=== PATIENT | male | born 1960 | race Caucasian/White ===

== ENCOUNTER 2017-08-24 20:20 | Observation (INO) ==
[2017-08-24 21:04] LABS: Basophils # 0.1 K/mcL (0.0-0.2); Basophils % 0.3 %; Eosinophils % 0.1 %; Hematocrit 42.6 % (37.5-50.1); Hemoglobin 15.3 g/dL (12.9-16.9); Immature Granulocytes % 0.5 % (0-4); Lymphocytes # 1.4 K/mcL (0.6-4.6); Lymphocytes % 9.4 %; Mean Corpuscular HGB Conc 35.9 g/dL (31.6-35.5); Mean Corpuscular Hemoglobin 31.6 pg (28.0-33.3); Mean Platelet Volume 9.1 fL (9.4-12.4); Monocytes # 1.4 K/mcL (0.0-1.3); Monocytes % 9.6 %; Neutrophils # 11.9 K/mcL (1.6-8.9); Platelet Count 198 K/mcL (140-400); Red Blood Count 4.84 M/mcL (4.19-5.50); Red Cell Distribution Width 12.8 % (11.5-14.5); Segmented Neutrophils % 80.1 %
[2017-08-24 21:05] LABS: Bilirubin,Urine Negative (Negative); Blood,Urine Trace-lysed (Negative); Clarity,Urine Clear (Clear); Color,Urine Yellow (Yellow); Glucose,Urine (UA) Normal (Normal); Ketones,Urine Negative (Negative); Leukocyte Esterase,Urine Negative (Negative); Nitrite,Urine Negative (Negative); Protein,Urine 30 mg/dL (Neg-Trace); Specific Gravity,Urine 1.015 (1.010-1.025); Urobilinogen,Urine Normal (Normal)
[2017-08-24 21:27] LABS: Albumin/Globulin Ratio 1.7 (1.1-2.2); Bilirubin,Direct 0.2 mg/dL (0.0-0.2); Bilirubin,Indirect 0.6 mg/dL (0.0-1.2); Bilirubin,Total 0.8 mg/dL (0.3-1.0); Calcium 9.7 mg/dL (8.6-10.3); Globulin 2.9 g/dL (2.4-3.5); Potassium 3.3 mEq/L (3.5-5.1); Total Protein 7.9 g/dL (6.4-8.9)
[2017-08-24 21:28] LABS: RBC,Urine 0-3 per hpf (0-3)
[2017-08-24 21:29] LABS: Bacteria,Urine Few per hpf (None-Few); Hyaline Casts,Urine None Seen per lpf (None-Few); Mucus,Urine Few (Few); Squamous Epithelial Cell,Urine Few per lpf (None-Few)
[2017-08-24] MEDS ORDERED: Ondansetron 4 MG/2 ML VIAL IVP ONE (22:23)
[2017-08-24] MEDS ORDERED: Isovue-370 500 ML INFUS..BTL IV ONE (22:23)
[2017-08-24] MEDS ORDERED: *HR* FentaNYL (PF) 100 MCG/2 ML VIAL IVP ONE ×2 (22:23→23:13)
[2017-08-24] MEDS ORDERED: 0.9 % Sodium Chloride 1,000 ML IVC ONE (22:23)
--- NOTE | 2017-08-24 23:21 | Emergency Department Note ---
Disposition Clinical Impression: Obstructive nephropathy Disposition: Admitted As Inpatient Condition: Good Referrals: Trev Alvarado DO [Primary Care Provider] - Time of Disposition: 11:50 General Adult HPI - General Chief complaint: ED Urogenital-Male Stated complaint: ABD PAIN Time Seen by Provider: 08/24/17 21:00 Source: patient Limitations: no limitations Nursing Notes Reviewed: Yes Vital Signs Reviewed: Yes - History of Present Illness HPI Narrative: 57M with PMHx of HTN presents today with RUQ abdominal pain for 2 days. He reports that pain is constant, sharp in nature and radiates towards the back, started yesterday at 3pm. He does not recall any inciting factors. Food intake does not make it worse. Today, pain has worsened and he decided to come to the emergency room. He has not taken any medications for the pain. Nothing seems to make pain better or worse. Current pain is 8/10. He denies fevers, chills, vomitting, but does admit to nausea. 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 His last BM was 2 days ago, and he admits to not passing gas since then. He denies dysuria, hematuria. No further acute complaints. Pt Subjective Complaint: RUQ pain Pain Scale: 9 - Related Data Home Medications Medication Instructions Recorded Confirmed Acyclovir [Zovirax] 800 mg PO BID 02/29/16 02/29/16 Amlodipine Bes/Olmesartan Med 1 tab PO DAILY 02/29/16 02/29/16 [Amlodipine-Olmesartan 10-40 mg] Esomeprazole Magnesium [Nexium] 40 mg PO DAILY 02/29/16 02/29/16 Multivitamin [Multivitamins] 1 tab PO DAILY 02/29/16 02/29/16 Previous Rx's Medication Instructions Recorded Docusate [Colace] 100 mg PO BID #30 capsule 03/01/16 OxyCODONE/APAP 5/325 [Percocet 1 each PO Q6HR PRN #30 tablet 03/01/16 5/325 MG] Allergies Allergy/AdvReac Type Severity Reaction Status Date / Time No Known Allergies Allergy Verified 02/29/16 02:10 Review of Systems: As Per HPI Constitutional: Reports: as per HPI Eyes: Reports: as per HPI Cardiovascular: Reports: as per HPI Respiratory: Reports: as per HPI Gastrointestinal: Reports: as per HPI Genitourinary: Reports: as per HPI Musculoskeletal: Reports: as per HPI Integumentary: Reports: as per HPI Neurological: Reports: as per HPI Past Medical History - Past Medical History Medical history: Reports: GERD, hypertension Surgical history: Reports: no surgical history Psychiatric history: Reports: no psych history - Social History Smoking Status: Never smoker Smokeless Tobacco Status: No Alcohol use: Reports: none Drug use: Reports: none Physical Exam - General Limitations: no limitations General appearance: alert, in no apparent distress - Head Head exam: atraumatic, normocephalic, normal inspection - Eye Eye exam: Present: normal appearance, PERRL, EOMI - Expanded Eye Exam Pupils: Left: reactive - ENT ENT exam: normal exam, normal oropharynx, mucous membranes moist - Expanded ENT Exam External ear exam: Present: normal external inspection Mouth exam: Present: normal external inspection Teeth exam: Present: normal inspection Throat exam: Present: normal inspection - Neck Neck exam: Present: normal inspection, full ROM, trachea midline - Chest Chest inspection: Present: normal inspection, symmetric chest wall rise - Respiratory Respiratory exam: Present: normal lung sounds bilaterally - Cardiovascular Cardiovascular exam: Present: regular rate, normal rhythm, normal heart sounds - Abdominal Exam Abdominal exam: Present: soft, tenderness (diffuse). Absent: distention, guarding, rebound, rigidity Abdominal tenderness: Present: RLQ - Extremities Exam Extremities exam: Present: normal inspection, full ROM. Absent: tenderness, pedal edema - Expanded Upper Extremity Exam Shoulder exam: Present: normal inspection, full ROM Arm exam: Present: normal inspection, full ROM Elbow exam: Present: normal inspection, full ROM Forearm/Wrist exam: Present: normal inspection, full ROM Hand exam: Present: normal inspection, full ROM Vascular exam: Normal: capillary refill, radial pulse - Expanded Lower Extremity Exam Hip/Pelvis exam: Present: normal inspection, full ROM Upper leg exam: Present: normal inspection, full ROM Knee exam: Present: normal inspection, full ROM Lower leg exam: Present: normal inspection, full ROM Ankle exam: Present: normal inspection, full ROM Foot/toe exam: Present: normal inspection, full ROM Neurovascular/Tendon exam: Absent: motor deficit, sensory deficit, tendon deficit - Back Exam Back exam: Present: normal inspection, full ROM. Absent: tenderness - Neurological Exam Neurological exam: Present: alert, oriented X3 - Expanded Neurological Exam Patient oriented to: Present: person, place, time Coma Scale Eye Opening: Spontaneous Coma Scale Motor Response: Obeys Commands Coma Scale Verbal Response: Oriented Coma Scale Total: 15 - Psychiatric Psychiatric exam: Present: normal affect, normal mood - Skin Skin exam: Present: warm, dry, intact, normal color Course Course Narrative: Patient received one dose of Fentanyl 50mg, without relief of abdominal pain. 2nd dose was given with better pain control. IV fluid and Zofran started. - Consultations Consultation #1: Urology Consult, Dr. Wilson. He recommends inpatient admission secondary to severe pain and JYOTHI due to o bstructive nephropathy of the upper pole of the right kidney. Pending admission. Time: 23:00 Consultation #2: Patient to be admitted to inpatient service. Dr. Still notified. Time: 23:30 Vital Signs Temperature 98.3 F 08/24/17 20:23 Pulse Rate 73 08/24/17 20:23 Respiratory Rate 18 08/24/17 20:23 Blood Pressure 163/94 08/24/17 20:23 O2 Sat by Pulse Oximetry 96 08/24/17 20:23 Temperature 98.3 F 08/24/17 20:59 Pulse Rate 55 08/24/17 22:30 Respiratory Rate 20 08/24/17 21:05 Blood Pressure 154/89 08/24/17 22:30 O2 Sat by Pulse Oximetry 94 08/24/17 21:05 Oxygen Delivery Oxygen Delivery Room Air Medical Decision Making - Medical Records Medical records reviewed: Yes I reviewed the patient's medical records. - Lab Data Lab results reviewed: Yes I reviewed the patient's lab results. Result diagrams: 08/24/17 20:34 08/24/17 20:34 Lab Results 08/24/17 08/24/17 08/24/17 Range/Units 20:34 20:34 20:34 WBC 14.8 H (4.3-11.1) K/mcL RBC 4.84 (4.19-5.50) M/mcL Hgb 15.3 (12.9-16.9) g/dL Hct 42.6 (37.5-50.1) % MCV 88.0 (83.0-100.0) fL MCH 31.6 (28.0-33.3) pg MCHC 35.9 H (31.6-35.5) g/dL RDW 12.8 (11.5-14.5) % Plt Count 198 (140-400) K/mcL MPV 9.1 L (9.4-12.4) fL Immature Gran % 0.5 (0-4) % Seg Neutrophils % 80.1 % Lymphocytes % 9.4 % Monocytes % 9.6 % Eosinophils % 0.1 % Basophils % 0.3 % Neutrophils # 11.9 H (1.6-8.9) K/mcL Lymphocytes # 1.4 (0.6-4.6) K/mcL Monocytes # 1.4 H (0.0-1.3) K/mcL Eosinophils # 0.0 (0.0-0.6) K/mcL Basophils # 0.1 (0.0-0.2) K/mcL Sodium 141 (136-145) mEq/L Potassium 3.3 L (3.5-5.1) mEq/L Chloride 107 (98-107) mEq/L Carbon Dioxide 25 (23-29) mEq/L BUN 22 H (6-20) mg/dL Creatinine 1.65 H (0.70-1.30) mg/dL Est GFR ( Amer) 52 L (> 60) Est GFR (Non-Af Amer) 43 L (> 60) BUN/Creatinine Ratio 13 (6-26) Glucose 120 H (70-105) mg/dL Calculated Osmolality 297 (280-300) Calcium 9.7 (8.6-10.3) mg/dL Total Bilirubin 0.8 (0.3-1.0) mg/dL Direct Bilirubin 0.2 (0.0-0.2) mg/dL Indirect Bilirubin 0.6 (0.0-1.2) mg/dL AST 21 (13-39) Units/L ALT 25 (7-52) Units/L Alkaline Phosphatase 88 (34-104) Units/L Serum Total Protein 7.9 (6.4-8.9) g/dL Albumin 5.0 (3.5-5.7) g/dL Globulin 2.9 (2.4-3.5) g/dL Albumin/Globulin Ratio 1.7 (1.1-2.2) Amylase 32 (29-103) Units/L Lipase 34 (11-82) Units/L Urine Color Yellow (Yellow) Urine Clarity Clear (Clear) Urine pH 7.0 (5.0-8.0) pH Units Ur Specific [place] 1.015 (1.010-1.025) Urine Protein 30 H (Neg-Trace) mg/dL Urine Glucose (UA) Normal (Normal) mg/dL Urine Ketones Negative (Negative) mg/dL Urine Blood Trace-lysed H (Negative) Urine Nitrite Negative (Negative) Urine Bilirubin Negative (Negative) Urine Urobilinogen Normal (Normal) mg/dL Ur Leukocyte Esterase Negative (Negative) Urine Microscopic RBC 0-3 (0-3) per hpf Ur Squamous Epith Cells Few (None-Few) per lpf Urine Bacteria Few (None-Few) per hpf Hyaline Casts None Seen (None-Few) per lpf Urine Mucus Few (Few) Ur Culture Indicated? NO (NO) - Radiology Data Radiology results reviewed: Yes I reviewed the patient's radiology results.
[2017-08-24] MEDS ORDERED: Ondansetron 4 MG/2 ML VIAL IVP PRN (23:59)
[2017-08-24] MEDS ORDERED: Naloxone 0.4 MG/ML INJ IVP PRN (23:59)
[2017-08-24] MEDS ORDERED: Ketorolac 30 MG/ML VIAL IVP PRN (23:59)
[2017-08-24] MEDS ORDERED: *HR* Promethazine 25 MG/ML VIAL IVP PRN (23:59)
[2017-08-24] MEDS ORDERED: Ibuprofen 400 MG TABLET PO PRN (23:59)
[2017-08-25] MEDS ORDERED: Potassium Chloride 40 MEQ, Lidocaine 1% 2 ML in D5% in Water 500 ML IVPB ONE (00:02)
--- NOTE | 2017-08-25 00:11 | Event Note ---
Date of Encounter: 08/25/17 Time of Encounter: 00:08 Patient was seen and examined. Agree with the H&P as written by the resident physician. Briefly, patient is a 57-year-old male with a history of hypertension and GERD who presents with right sided colicky abdominal pain radiating to the right flank since yesterday around 3 PM. Has been on and off since then. Kept him up at night. Associated nausea. Denies decreased urine output. When he presented to the ED he was noted to have leukocytosis as well as hypokalemia and elevated kidney function. Patient denies any fevers or chills. Urinalysis was not indicative of a UTI. Was hemodynamically stable in the ED. A CT abdomen and pelvis showed a duplex right kidney with calculi within the right kidney and a 2 mm calculus at the right UVJ. Urology were contacted by the ED and recommended admission. Patient needed 100 g of IV fentanyl for pain control GEN: NAD CVS: RRR. S1, S2, No m/r/g RESP: CTAB ABD: Soft, right lower abdominal tenderness, ND, +BS EXT: No edema. 2+ DP. No rashes NEURO: Nonfocal Admit to the hospitalist Nothing by mouth Consult urology Strain urine Pain control IV fluids Avoid nephrotoxins Monitor urine output Labs in the morning DVT prophylaxis
--- NOTE | 2017-08-25 00:44 | Internal Med History&Physical ---
Date of Encounter: 08/25/17 Time of Encounter: 00:40 Internal Medicine - H&P: HPI Chief complaint: right flank pain Admitted From: Home Plans for Post Hospital Care: Home History of present illness: Mr. Beasley is a 57 year old male with a past medical history of hypertension and GERD who presented to the ED with 2 day of left flank pain. Patient states that left pain flank pain and back pain began at 3 AM yesterday. He describes the pain as sharp, no change with position, and intermittent. Admits to associated nausea and constipation. Denies fever, diarrhea, dysuria, hematuria , vision changes, shortness of breath,or chest pain. In the ED, CT of the abdomen was obtained which showed obstructive nephropathy of the upper pole of the right kidney with a 2mm calculus at the R ureterovesical junction. Urology was consulted and recommended admitting. Fentany 50mcg IVP x2, IV fluids, and Zofran given in the ED. Patient admitted to the floor. Past Med Surg Social Fam HX - Past Medical History Medical history: GERD, hypertension Psychiatric history: no psych history - Past Surgical History Surgical History: cholecystectomy - Social History Smoking Status: Never smoker Smokeless Tobacco Status: No Alcohol use: none Drug use: none - Family History Brother Living Status: Still Living Hx Family Cancer: Yes (Prostate) Sister Living Status: Still Living Hx Family Cardiac Disorders: No Hx Family Respiratory Disorders: No Hx Family Cancer: No Hx Family GI Disorders: No Hx Family Endocrine Disorder: No Hx Family Neuromuscular Disorders: No Hx Family Neurologic Disorders: No Hx Family HEENT Disorders: No Hx Family Autoimmune Disorders: No Mother Living Status: Hx Family Cardiac Disorders: Yes (heart disease unspecified) Father Living Status: Hx Family Cardiac Disorders: Yes (heart disease unspecified) Internal Medicine - H&P: Meds Acyclovir [Zovirax] 800 mg PO BID 02/29/16 [History] Amlodipine Bes/Olmesartan Med [Amlodipine-Olmesartan 10-40 mg] 1 tab PO DAILY [History] Esomeprazole Magnesium [Nexium] 40 mg PO DAILY 02/29/16 [History] Multivitamin [Multivitamins] 1 tab PO DAILY 02/29/16 [History] Docusate [Colace] 100 mg PO BID #30 capsule 03/01/16 [Rx] OxyCODONE/APAP 5/325 [Percocet 5/325 MG] 1 each PO Q6HR PRN #30 tablet 03/01/16 [Rx] 3 Allergy/AdvReac Type Severity Reaction Status Date / Time No Known Allergies Allergy Verified 02/29/16 02:10 All Systems PM: A 10-system review of systems was performed and is negative for pertinent findings except as documented above in the HPI. - Constitutional Vitals: Temp Pulse Resp BP Pulse Ox 98.3 F 55 18 160/85 94 08/24/17 20:59 08/24/17 22:30 08/25/17 00:23 08/25/17 00:23 08/24/17 21:05 Exam: Constitutional: Alert, in no acute distress Head: Normocephalic, atraumatic Heart: Normal, regular rate and rhythm, no murmurs Lungs: Clear to auscultation, no wheezes, rales, or rhonchi Abdomen: right CVA tenderness, left flank pain tenderness, Soft, nondistended, no guarding or rigidity. Extremities: No edema, No clubbing radial pulse +2/4, capillary refill <2sec. Skin: Skin warm and dry, no lesions, no rashes, no jaundice Neurologic: strength 5/5 in all extremitites Psych: Cooperative with exam, good eye contact, cognitive function intact, speech clear, thought process logical, and goal directed Internal Med - H&P Results - Labs CBC & Chem 7: 08/24/17 20:34 08/24/17 20:34 - Assessment and plan (1) Obstructive uropathy Current Visit: Yes Status: Acute Assessment and plan: No previous history of kidney stones. Mild leukocytosis with UA showing protienuria and hematuria. Left flank pain with CT of the abdomen shows obstructive nephropathy of the upper pole of the right kidney with a 2 mm calculus at the right ureterovesical junction. Urology consulted in the ED and recommended admitting the patient. Plan: - urology consulted, recommendations appreciated. - continue NS 125ml/hr - pain control: Percocet 10-325 Q4H - strain urine prn void - nausea: Zofran and Phenergan (2) JYOTHI (acute kidney injury) Current Visit: Yes Status: Acute Assessment and plan: No previous kidney disease therefore 2/2 to hydronephrosis and obstruction. Will continue fluids. Recheck creatinine in the AM. (3) Hypokalemia Current Visit: Yes Status: Acute Assessment and plan: K= 3.3. KCl 40meq given. Will recheck in the AM. (4) HTN (hypertension) Current Visit: Yes Status: Acute Assessment and plan: Continue home medications. Hydralazine 10mg prn systolic BP > 160mmHg. Qualifiers: Hypertension type: essential hypertension Qualified Code(s): I10 - Essential (primary) hypertension - Time Spent With Patient Total time spent is greater than 50% in coordination of care (as documented) at patient's floor/unit and/or counseling patient:
--- NOTE | 2017-08-25 00:50 | Emergency Department Note ---
Disposition Clinical Impression: Obstructive nephropathy Disposition: Admitted As Inpatient Condition: Fair Referrals: Trev Alvarado DO [Primary Care Provider] - Abdominal Pain HPI - General Chief Complaint: ED Urogenital-Male Stated Complaint: ABD PAIN Time Seen by Provider: 08/24/17 21:00 Source: patient Mode of arrival: ambulatory Limitations: no limitations Nursing Notes Reviewed: Yes Vital Signs Reviewed: Yes - History of Present Illness Pain Scale: 9 - Related Data Home Medications Medication Instructions Recorded Confirmed Acyclovir [Zovirax] 800 mg PO BID 02/29/16 02/29/16 Amlodipine Bes/Olmesartan Med 1 tab PO DAILY 02/29/16 02/29/16 [Amlodipine-Olmesartan 10-40 mg] Esomeprazole Magnesium [Nexium] 40 mg PO DAILY 02/29/16 02/29/16 Multivitamin [Multivitamins] 1 tab PO DAILY 02/29/16 02/29/16 Previous Rx's Medication Instructions Recorded Docusate [Colace] 100 mg PO BID #30 capsule 03/01/16 OxyCODONE/APAP 5/325 [Percocet 1 each PO Q6HR PRN #30 tablet 03/01/16 5/325 MG] Allergies Allergy/AdvReac Type Severity Reaction Status Date / Time No Known Allergies Allergy Verified 02/29/16 02:10 Constitutional: Reports: as per HPI Eyes: Reports: as per HPI Cardiovascular: Reports: as per HPI Respiratory: Reports: as per HPI Gastrointestinal: Reports: as per HPI Genitourinary: Reports: as per HPI Musculoskeletal: Reports: as per HPI Integumentary: Reports: as per HPI Neurological: Reports: as per HPI Abdominal Pain PMH - Past Medical History Medical history: Reports: GERD, hypertension Male Surgical History: Reports: cholecystectomy Psychiatric history: Reports: no psych history - Social History Smoking status: Never smoker Alcohol use: Reports: none Drug use: Reports: none Physical Exam - General Limitations: no limitations General appearance: alert, in no apparent distress Course Vital Signs Temperature 98.3 F 08/24/17 20:23 Pulse Rate 73 08/24/17 20:23 Respiratory Rate 18 08/24/17 20:23 Blood Pressure 163/94 08/24/17 20:23 O2 Sat by Pulse Oximetry 96 08/24/17 20:23 Temperature 98.3 F 08/24/17 20:59 Pulse Rate 55 08/24/17 22:30 Respiratory Rate 18 08/25/17 00:23 Blood Pressure 160/85 08/25/17 00:23 O2 Sat by Pulse Oximetry 94 08/24/17 21:05 Oxygen Delivery Oxygen Delivery Room Air Abdominal Pain - Lab Data Result diagrams: 08/24/17 20:34 08/24/17 20:34 Lab Results 08/24/17 08/24/17 08/24/17 Range/Units 20:34 20:34 20:34 WBC 14.8 H (4.3-11.1) K/mcL RBC 4.84 (4.19-5.50) M/mcL Hgb 15.3 (12.9-16.9) g/dL Hct 42.6 (37.5-50.1) % MCV 88.0 (83.0-100.0) fL MCH 31.6 (28.0-33.3) pg MCHC 35.9 H (31.6-35.5) g/dL RDW 12.8 (11.5-14.5) % Plt Count 198 (140-400) K/mcL MPV 9.1 L (9.4-12.4) fL Immature Gran % 0.5 (0-4) % Seg Neutrophils % 80.1 % Lymphocytes % 9.4 % Monocytes % 9.6 % Eosinophils % 0.1 % Basophils % 0.3 % Neutrophils # 11.9 H (1.6-8.9) K/mcL Lymphocytes # 1.4 (0.6-4.6) K/mcL Monocytes # 1.4 H (0.0-1.3) K/mcL Eosinophils # 0.0 (0.0-0.6) K/mcL Basophils # 0.1 (0.0-0.2) K/mcL Sodium 141 (136-145) mEq/L Potassium 3.3 L (3.5-5.1) mEq/L Chloride 107 (98-107) mEq/L Carbon Dioxide 25 (23-29) mEq/L BUN 22 H (6-20) mg/dL Creatinine 1.65 H (0.70-1.30) mg/dL Est GFR ( Amer) 52 L (> 60) Est GFR (Non-Af Amer) 43 L (> 60) BUN/Creatinine Ratio 13 (6-26) Glucose 120 H (70-105) mg/dL Calculated Osmolality 297 (280-300) Calcium 9.7 (8.6-10.3) mg/dL Total Bilirubin 0.8 (0.3-1.0) mg/dL Direct Bilirubin 0.2 (0.0-0.2) mg/dL Indirect Bilirubin 0.6 (0.0-1.2) mg/dL AST 21 (13-39) Units/L ALT 25 (7-52) Units/L Alkaline Phosphatase 88 (34-104) Units/L Serum Total Protein 7.9 (6.4-8.9) g/dL Albumin 5.0 (3.5-5.7) g/dL Globulin 2.9 (2.4-3.5) g/dL Albumin/Globulin Ratio 1.7 (1.1-2.2) Amylase 32 (29-103) Units/L Lipase 34 (11-82) Units/L Urine Color Yellow (Yellow) Urine Clarity Clear (Clear) Urine pH 7.0 (5.0-8.0) pH Units Ur Specific [place] 1.015 (1.010-1.025) Urine Protein 30 H (Neg-Trace) mg/dL Urine Glucose (UA) Normal (Normal) mg/dL Urine Ketones Negative (Negative) mg/dL Urine Blood Trace-lysed H (Negative) Urine Nitrite Negative (Negative) Urine Bilirubin Negative (Negative) Urine Urobilinogen Normal (Normal) mg/dL Ur Leukocyte Esterase Negative (Negative) Urine Microscopic RBC 0-3 (0-3) per hpf Ur Squamous Epith Cells Few (None-Few) per lpf Urine Bacteria Few (None-Few) per hpf Hyaline Casts None Seen (None-Few) per lpf Urine Mucus Few (Few) Ur Culture Indicated? NO (NO) Attestation Statement - Attestation Attestation: I, Jac Back, examined this patient and my medical decision-making was reviewed with the EXECUTIVE SALES ASSISTANT/PA/Advanced Practice Nurse/Resident Physician. I agree with the documented findings, disposition and treatment plan as described except to the extent set forth below. 57-year-old male presents emergency Department with concerns of right flank pain. Patient states symptoms started within the past 24 hours. Patient states symptoms have worsened. Denies fever, chills, diarrhea, hematochezia, melena. Patient feels nauseated but has not vomited. Patient denies similar symptoms in the past. No history of kidney stones. Patient denies hematuria. Urinalysis shows large amount of blood in the urine. CT shows obstruction of the upper pole of the kidney as well as a distal ureteral stone. Patient required multiple doses of IV narcotics in the emergency department to control pain. Patient had an elevation of his creatinine to 1.65. The resident, , spoke with the urologist, Dr. Wilson, regarding the patient's case and presentation. He felt comfortable with the plan for admission to the hospitalist for further care and evaluation he will see the patient in the morning.
[2017-08-25] MEDS ORDERED: *HR* OxyCODONE/APAP 10/325 TABLET PO PRN (00:58)
[2017-08-25] MEDS ORDERED: 0.9 % Sodium Chloride 1,000 ML IVC SCH (01:00)
[2017-08-25 03:57] VITALS: BP 111/65
[2017-08-25 04:37] LABS: Basophils % 0.3 %; Eosinophils % 0.1 %; Hematocrit 37.5 % (37.5-50.1); Immature Granulocytes % 0.5 % (0-4); Lymphocytes # 1.1 K/mcL (0.6-4.6); Lymphocytes % 8.7 %; Mean Corpuscular HGB Conc 35.2 g/dL (31.6-35.5); Mean Corpuscular Hemoglobin 31.6 pg (28.0-33.3); Mean Corpuscular Volume 89.7 fL (83.0-100.0); Mean Platelet Volume 10.3 fL (9.4-12.4); Monocytes # 1.3 K/mcL (0.0-1.3); Monocytes % 9.9 %; Nucleated Red Blood Cells 0.2 /100 WBC (0); Platelet Count 134 K/mcL (140-400); Red Blood Count 4.18 M/mcL (4.19-5.50); Red Cell Distribution Width 12.9 % (11.5-14.5); Segmented Neutrophils % 80.5 %
[2017-08-25 04:40] LABS: Hemoglobin 13.2 g/dL (12.9-16.9); Neutrophils # 10.6 K/mcL (1.6-8.9)
[2017-08-25 04:43] LABS: INR 1.2
[2017-08-25 04:58] LABS: BUN/Creatinine Ratio 13 (6-26); Blood Urea Nitrogen 18 mg/dL (6-20); Calcium 8.6 mg/dL (8.6-10.3); Carbon Dioxide 23 mEq/L (23-29); Chloride 110 mEq/L (98-107); Glucose 134 mg/dL (70-105); Osmolality,Calculated 294 (280-300); Potassium 3.8 mEq/L (3.5-5.1); Sodium 140 mEq/L (136-145); eGFR For African Americans > 60 (> 60); eGFR For Non-African Americans 53 (> 60)
[2017-08-25] MEDS ORDERED: *HR* Heparin 5,000 UNIT/ML VIAL SQ SCH (06:00)
--- NOTE | 2017-08-25 07:33 | Urology - Consult Note ---
Date of Encounter: 08/25/17 Time of Encounter: 07:31 - Assessment and Plan (1) Right ureteral stone Current Visit: Yes Status: Acute Assessment and plan: I discussed with the patient treatment options regarding a right distal ureteral stone. These included surgical removal versus medical expulsion therapy. At this point recommend medical expulsion therapy with Flomax 0.4 mg 1 by mouth daily for 3 weeks. Patient is scheduled for follow-up with me on at 11:30 in [place]. We will obtain KUB for baseline evaluation today. Urology CN:HPI Consult date: 08/25/17 Reason for consult Urology: Other (right ureteral stone) Requesting physician: Luis A Still History of present illness: Reza is a 57-year-old male with a history of admission to the hospital secondary to severe right-sided flank pain. Patient was found to have a distal right 2 mm stone on the right side. Patient does have some mild proximal hydronephrosis. 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 Patient's pain has been well-controlled since arriving to the hospital. He states that he is in 0 pain at this time. No current nausea or vomiting. No fevers. Patient's serum creatinine improved overnight with IV fluids. Past Med Surg Social Fam HX - Past Medical History Medical history: GERD, hypertension Psychiatric history: no psych history - Past Surgical History Surgical History: cholecystectomy - Social History Smoking Status: Never smoker Smokeless Tobacco Status: No Alcohol use: none Drug use: none - Family History Brother Living Status: Still Living Hx Family Cancer: Yes (Prostate) Sister Living Status: Still Living Hx Family Cardiac Disorders: No Hx Family Respiratory Disorders: No Hx Family Cancer: No Hx Family GI Disorders: No Hx Family Endocrine Disorder: No Hx Family Neuromuscular Disorders: No Hx Family Neurologic Disorders: No Hx Family HEENT Disorders: No Hx Family Autoimmune Disorders: No Mother Living Status: Hx Family Cardiac Disorders: Yes (heart disease unspecified) Father Living Status: Hx Family Cardiac Disorders: Yes (heart disease unspecified) Medications and Allergies Acyclovir [Zovirax] 800 mg PO BID 02/29/16 [History] Amlodipine Bes/Olmesartan Med [Amlodipine-Olmesartan 10-40 mg] 1 tab PO DAILY [History] Esomeprazole Magnesium [Nexium] 40 mg PO DAILY 02/29/16 [History] Multivitamin [Multivitamins] 1 tab PO DAILY 02/29/16 [History] Docusate [Colace] 100 mg PO BID #30 capsule 03/01/16 [Rx] OxyCODONE/APAP 5/325 [Percocet 5/325 MG] 1 each PO Q6HR PRN #30 tablet 03/01/16 [Rx] 3 Allergy/AdvReac Type Severity Reaction Status Date / Time No Known Allergies Allergy Verified 02/29/16 02:10 Review of Systems - Constitutional no chills, no fever(s) - EENT Nose, mouth and throat: no dizziness - Cardiovascular no chest pain - Respiratory no cough - Gastrointestinal abdominal pain, no nausea, no vomiting - Genitourinary as per HPI - Musculoskeletal no back pain - Integumentary no erythema Exam Initial Vital Signs Temp Pulse Resp BP Pulse Ox 98.3 F 73 18 163/94 96 08/24/17 20:23 08/24/17 20:23 08/24/17 20:23 08/24/17 20:23 08/24/17 20:23 General/Neuological: alert and oriented x 3 Eyes: normal pupils, non-icteric Neck: no lymphadenopathy noted, supple to touch ABD: soft, nontender, no masses palpated, good bowel sounds Back: no pain on percussion bilaterally Skin: no rashes noted Musculoskeletal: normal gait, FROMx4 Urology Results - Labs 08/25/17 03:53 08/25/17 03:53 Abnormal lab results WBC 13.1 K/mcL (4.3-11.1) H 08/25/17 03:53 RBC 4.18 M/mcL (4.19-5.50) L 08/25/17 03:53 Plt Count 134 K/mcL (140-400) L 08/25/17 03:53 Neutrophils # 10.6 K/mcL (1.6-8.9) H 08/25/17 03:53 Nucleated RBCs/100 WBC 0.2 /100 WBC (0) H 08/25/17 03:53 PT 13.0 Seconds (9.4-12.1) H 08/25/17 03:53 Chloride 110 mEq/L (98-107) H 08/25/17 03:53 Creatinine 1.38 mg/dL (0.70-1.30) H 08/25/17 03:53 Est GFR (Non-Af Amer) 53 (> 60) L 08/25/17 03:53 Glucose 134 mg/dL (70-105) H 08/25/17 03:53 POC Glucose 136 mg/dL (70-99) H 08/25/17 05:13 Urine Protein 30 mg/dL (Neg-Trace) H 08/24/17 20:34 Urine Blood Trace-lysed (Negative) H 08/24/17 20:34 Diabetes panel 08/25/17 Range/Units 03:53 Sodium 140 (136-145) mEq/L Potassium 3.8 (3.5-5.1) mEq/L Chloride 110 H (98-107) mEq/L Carbon Dioxide 23 (23-29) mEq/L BUN 18 (6-20) mg/dL Creatinine 1.38 H (0.70-1.30) mg/dL Glucose 134 H (70-105) mg/dL Calcium 8.6 (8.6-10.3) mg/dL Calcium panel 08/25/17 Range/Units 03:53 Calcium 8.6 (8.6-10.3) mg/dL Pituitary panel 08/25/17 Range/Units 03:53 Sodium 140 (136-145) mEq/L Potassium 3.8 (3.5-5.1) mEq/L Chloride 110 H (98-107) mEq/L Carbon Dioxide 23 (23-29) mEq/L BUN 18 (6-20) mg/dL Creatinine 1.38 H (0.70-1.30) mg/dL Glucose 134 H (70-105) mg/dL Calcium 8.6 (8.6-10.3) mg/dL Adrenal panel 08/25/17 Range/Units 03:53 Sodium 140 (136-145) mEq/L Potassium 3.8 (3.5-5.1) mEq/L Chloride 110 H (98-107) mEq/L Carbon Dioxide 23 (23-29) mEq/L BUN 18 (6-20) mg/dL Creatinine 1.38 H (0.70-1.30) mg/dL Glucose 134 H (70-105) mg/dL Calcium 8.6 (8.6-10.3) mg/dL All other labs normal. - Imaging CT scan - abdomen: image reviewed CT scan - pelvis: image reviewed Consult Discharge Plan - Plan Referrals: Trev Alvarado DO [Primary Care Provider] -
--- NOTE | 2017-08-25 10:06 | Discharge Summary ---
<Topher Owens - Last Filed: 08/25/17 11:43> - NOTES TO OUTPATIENT PROVIDER Notes to Outpatient Provider: Partially obstructing R kidney stone, plan for flomax x 3 weeks and Urology follow up on 09/12/17. Date of Encounter: 08/25/17 Time of Encounter: 09:35 - Discharge Diagnosis (1) Obstructive uropathy Priority: Primary Status: Acute (2) JYOTHI (acute kidney injury) Priority: Secondary Status: Acute (3) Hypokalemia Priority: Secondary Status: Acute (4) HTN (hypertension) Priority: Secondary Status: Acute Qualifiers: Hypertension type: essential hypertension Qualified Code(s): I10 - Essential (primary) hypertension Hospital course: Mr. Beasley is a 57 year old male that presented to [facility] ED with concerns of worsening right flank pain x 24 hours. Denies fever, chills, diarrhea, hematochezia, melena. Admitted nausea but no vomiting. No history of kidney stones. Urinalysis in the ED showed a large amount of blood in the urine. CT showed obstruction of the upper pole of the kidney as well as a distal ureteral stone; KUB today showed stable partially obstructing 2mm calculus at the right UVJ with incomplete emptying of right ureter. Patient received IV narcotics for pain control. Patient noted to have elevation of his creatinine to 1.65, improving today at 1.38. Urology consulted, patient seen by Dr. Wilson, plan developed with shared decision making. Plan to discharge on daily Flomax 0.4mg x 3 weeks with Urology follow up on 09/12at 11:30am. Also send for short course of antibiotics to be completed. Discharge discussed with: patient, family - Time Spent with Patient Total time spent providing and/or coordinating discharge services: Less than 30 minutes - Discharge Medications Prescriptions: Ciprofloxacin [Cipro] 500 mg PO BID #10 tablet HYDROcodone/Acet 5/325 mg [[place] 5-325 mg] 1 tab PO Q6H PRN 3 Days #12 tab PRN Reason: Pain Tamsulosin [Flomax] 0.4 mg PO DAILY #30 cap.er.24h Home Medications: Acyclovir [Zovirax] 800 mg PO BID 02/29/16 [History] Amlodipine Bes/Olmesartan Med [Amlodipine-Olmesartan 10-40 mg] 1 tab PO DAILY [History] Multivitamin [Multivitamins] 1 tab PO DAILY 02/29/16 [History] Docusate [Colace] 100 mg PO BID #30 capsule 03/01/16 [Rx] Ciprofloxacin [Cipro] 500 mg PO BID #10 tablet 08/25/17 [Rx] HYDROcodone/Acet 5/325 mg [[place] 5-325 mg] 1 tab PO Q6H PRN 3 Days #12 tab 08/25 [Rx] Tamsulosin [Flomax] 0.4 mg PO DAILY #30 cap.er.24h 08/25/17 [Rx] Allergies/Adverse Reactions: 3 Allergy/AdvReac Type Severity Reaction Status Date / Time No Known Allergies Allergy Verified 02/29/16 02:10 Date of admission: 08/25/17 00:10 Primary care physician: Trev Alvarado DO Consults: 08/25/17 00:15 Consult to Urology [CONS] Stat Consulting Provider: Urology Dorie Reason for Consult: Obstructive nephropathy of the upper pole of the right kidney Time Notified: 23:00 Call Completed: Yes Discharging clinician: Giacomo Bains Anticipated date of discharge: 08/25/17 - Constitutional Vitals: Temp Pulse Resp BP Pulse Ox 99.0 F 61 15 111/65 95 08/25/17 03:55 08/25/17 03:55 08/25/17 03:55 08/25/17 03:55 08/25/17 07:30 General appearance: Present: cooperative, A&O X 3, no acute distress, answers questions appropriately - Head Head exam: Present: atraumatic, normal inspection, normocephalic - Eye Eye exam: Present: normal appearance, sclera anicteric - ENT ENT exam: Present: mucous membranes moist - Neck Neck exam general surgery: Present: full ROM, normal inspection - Respiratory Respiratory exam: Present: CTAB. Absent: respiratory distress, rhonchi, stridor , wheezes - Cardiovascular Cardiovascular exam: Present: RRR, +S1, +S2 - GI/Abdominal GI/Abdominal exam: Present: normal bowel sounds, soft, tenderness (mild right flank tenderness (reported as improved)). Absent: distended, guarding - Extremities Exam Extremities exam: Present: normal inspection, warm. Absent: pedal edema, tenderness - Neurological Exam Neurological exam: Present: alert, oriented X3, no focal deficits. Absent: speech deficit - Psychiatric Psychiatric exam: Present: normal affect, normal mood - Skin Skin exam: Present: intact, normal color, warm. Absent: rash - Patient Status Disposition: Home, Self-Care Condition: Good Functional capacity at discharge: independent ambulation Overall status at discharge: patient is progressing back to baseline - Discharge Instructions Follow Up With: Trev Alvarado DO [Primary Care Provider] - Forms: Work/School Release Additional Instructions: Continue Flomax daily for 3 weeks. Please complete antibiotics. Scheduled for Urology follow-up on September 12 at 11:30 in [place]. Please return or seek medical care if you have new or worsening symptoms such as worsening abdominal/back pain, change in your bladder or bowel function, decreased urine output. - Diet and Activity Activity: resume usual activities as tolerated Diet: advance to your usual diet <Giacomo Bains - Last Filed: 08/25/17 17:03> Date of Encounter: 08/25/17 - Discharge Diagnosis (1) Obstructive uropathy Status: Acute (2) JYOTHI (acute kidney injury) Status: Acute (3) Hypokalemia Status: Acute (4) HTN (hypertension) Status: Acute Qualifiers: Hypertension type: essential hypertension Qualified Code(s): I10 - Essential (primary) hypertension Hospital course: Mr. Bealsey is a 57 year old male - Time Spent with Patient Total time spent providing and/or coordinating discharge services: Date of admission: 08/25/17 00:10 Primary care physician: Trev Alvarado DO Consults: 08/25/17 00:15 Consult to Urology [CONS] Stat Consulting Provider: Urology Dorie Reason for Consult: Obstructive nephropathy of the upper pole of the right kidney Time Notified: 23:00 Call Completed: Yes - Constitutional Vitals: Temp Pulse Resp BP Pulse Ox 99.0 F 61 15 111/65 95 08/25/17 03:55 08/25/17 03:55 08/25/17 03:55 08/25/17 03:55 08/25/17 07:30 - Attending Attestation I examined this patient and my medical decision-making was reviewed with the Resident Physician Dr. Campa. I agree with the documented findings, disposition and treatment plan as described except to the extent set forth below. Mr. Beasley is a 57 year old male that presented to [facility] ED with concerns of worsening right flank pain x 24 hours. Urinalysis in the ED showed a large amount of blood in the urine. CT showed obstruction of the upper pole of the kidney as well as a distal ureteral stone; KUB showed stable partially obstructing 2mm calculus at the right UVJ with incomplete emptying of right ureter. Pt was evaluated by urology and recommend to continue symptomatic and supportive care , as well as flomax. Recommend to f.u with them as an out pt. Pt 's pain is well controlled with PO meds. So will dc him home in stable condition. Since he does have dysuria, gave him 5 days of PO Abx.
== END 2017-08-25 11:14 | disposition home or self-care (01) | DRG 694 ==
LOC: 3ANU 20:20 → EMEROO 20:20 → SUATTDRO 08-25 00:10 → 3ANU 08-25 00:33
PROVIDERS: ADMIT Internal Medicine; ATTEND Family Medicine